=== PATIENT | female | born 1965 | race Caucasian/White ===

== ENCOUNTER 2024-10-05 01:19 | Inpatient (IN) | payer OTHER, SELFPAY ==
[2024-10-04 17:58] VITALS: BP 199/106
[2024-10-04 18:20] LABS: Hematocrit 39.8 % (37.0-47.0); Hemoglobin 13.5 g/dL (12.0-16.0); Mean Corp Hgb Conc. 33.9 g/dL (33.0-37.0); Mean Corpuscular Volume 78.7 fL (81.0-99.0); Nucleated Red Blood Cells % 0 %; Platelet Count 210 10^3/uL (130-400); Red Cell Dist. Width 15.0 % (11.5-14.5)
[2024-10-04 18:34] LABS: ALT (SGPT) 148 U/L (0-35); AST (SGOT) 63 U/L (14-36); Albumin 4.2 g/dl (3.5-5.0); Alkaline Phosphatase 228 U/L (38-126); Blood Urea Nitrogen 7 mg/dl (7-17); Calcium 9.2 mg/dl (8.4-10.2); Carbon Dioxide 24 mmol/L (22-30); Chloride 98 mmol/L (98-107); Glucose 131 mg/dl (70-99); Potassium 3.3 mmol/L (3.5-5.1); Sodium 132 mmol/L (135-145); Total Protein 7.3 g/dl (6.3-8.2); eGFR > 60.00
[2024-10-04 19:34] LABS: Lipase > 4000 U/L (23-300)
[2024-10-04] MEDS: NSS 1000 IV ×2 (21:41→23:16)
[2024-10-04] MEDS: TORADOL 15 MG IV (23:16)
[2024-10-05] VITALS (7 sets, daily range): BP systolic 148–179; BP diastolic 81–102; BMI 39.8
[2024-10-05] MEDS: ZOSYN 50 IV ×5 (00:11→23:42)
[2024-10-05] MEDS: DILAUDID 0.5 MG IV ×4 (00:12→21:10)
--- NOTE | 2024-10-05 01:17 | HPS.HSE ---
Family Physician
-
Family Physician: Donald Iqbal
Chief Complaint
-
Abd Pain
History of Present Illness
Patient is a 59y F with PMH significant for obesity, OCD and migraines who presents to ED complaining of abdominal pain and RUE pain. Patient states that her current symptoms started on Thursday. She reports epigastric pain without associated
N/V. She also has pain in the RUE - mostly medial upper arm. No known injury / trauma. She states that she was 'lying in a funny position' in an attempt to alleviate her abdominal pain. She has frequent heartburn /reflux. Patient reports
similar episodes in the past - a few times per year - but has never sought medical attention previously.
She was seen by a new PCP in August and had lab testing which was reportedly unremarkable. She was started on PPI and H2-blockade at that time for her heartburn symptoms.
Patient states that she has been working on diet and exercise and has lost about 15 pounds in the past 5 weeks.
Medical History
Past Medical History
Past Medical History: Reports Other
Additional Past Medical History:
Obesity
OCD
Migraine Headaches
Hypertension
Past Surgical History: Reports Other
Additional Past Surgical History:
RLE ORIF
Social History
Tobacco: Non-smoker
Alcohol: None
Drug: None
Family History
Family History: Not pertinent
Allergies / Home Medications
Allergies reflects when Allergies were last updated in [facility].
Home Medications with original date entered in [facility]
Allergy/Medication List:
Allergies
Allergy/AdvReac Type Severity Reaction Status Date / Time
seasonal Allergy Unknown Uncoded 10/04/24 18:04
Home Medications
paroxetine HCl 10 mg tablet 10 mg PO HS 11/30/07
metoprolol succinate 50 mg tablet,extended release 24 hr 50 mg PO HS 05/07/15
acetaminophen 325 mg tablet (Tylenol) 650 mg PO Q6HPRN PRN mild pain 10/04/24
aspirin-acetaminophen (buffered) 250 mg-250 mg tablet 1 tab PO DAILY 10/04/24
famotidine 20 mg tablet (Pepcid) 20 mg PO QPM 10/04/24
guaifenesin 400 mg tablet 400 mg PO DAILY 10/04/24
omeprazole 20 mg tablet,delayed release 20 mg PO DAILY 10/04/24
sumatriptan succinate 100 mg tablet (Imitrex) 0 mg PO .COMPLEX 10/04/24
Review of Systems
-
History Source: Patient
A 12 point ROS was completed and negative except as noted: Yes
Constitutional: Reports Fatigue; Denies Fever or Chills
EENT: Denies Sore Throat
Respiratory: Denies Cough or Trouble Breathing
Cardiac: Denies Chest Pain or Palpitations
Abdomen/GI: Reports Abdominal Pain; Denies Nausea, Vomiting, Diarrhea, Bloody Stools or Black Stools
: Denies Dysuria, Frequency or Flank Pain
Musculoskeletal: Reports Joint Pain and Muscle Pain; Denies Edema
Neurological: Denies Dizzy or Headache
Physical Exam
Vital Signs
Vital Signs
Temp Pulse Resp BP Pulse Ox
98.4 F 99 16 199/106 100
10/04/24 17:58 10/04/24 17:58 10/04/24 17:58 10/04/24 17:58 10/04/24 17:58
Physical Exam
General: Other (59y F in mild distress due to pain.)
HEENT: Moist mucous membranes, PERRLA and Other (Thick neck.)
Respiratory: Clear; No Wheezes, Rales or Rhonchi
Cardiac: S1/S2, Regular Rhythm and Murmur (II/ ELIECER)
GI: Other (Obese, pos RUQ tenderness without rebound or guarding. Pos BS.)
Musculoskeletal: No Clubbing, No Cyanosis and No Edema
Neuro: AO x 3
Laboratory Results
-
10/04/24 18:13
10/04/24 18:13
Laboratory Results
Total Bilirubin 4.5 mg/dl (0.2-1.3) H 10/04/24 18:13
AST 63 U/L (14-36) H 10/04/24 18:13
ALT 148 U/L (0-35) H 10/04/24 18:13
Alkaline Phosphatase 228 U/L (38-126) H 10/04/24 18:13
Lipase > 4000 U/L (23-300) H* 10/04/24 18:13
Impression/Plan
-
A/P: Patient is a 59y F with PMH significant for obesity, hypertension and migraines who presents to ED complaining of abdominal pain and RUE pain.
Acute Calculous Cholecystitis
Gallstone Pancreatitis
- Admit for further evaluation and treatment.
- NPO, IVFs, pain control, IV abx with Zosyn.
- Surgery consulted for eventual cholecystectomy.
- US done in the ED without evidence of ductal dilation, etc.
- Follow fever curve and monitor for improvement in symptoms.
RUE Pain
- ? referred pain secondary to GB disease - though is somewhat atypical in distribution.
- ? impingement from malpositioning over the weekend.
- Check US to rule out DVT - though this seems less likely.
- Continue supportive care / pain control.
Mild Hyponatremia and Hypokalemia
- IVF support / replacement.
- Follow for improvement.
OCD
- Stable. Continue Paxil.
Benign Hypertension
- Stable. Continue metoprolol.
Obesity due to excess calories
- Affects all aspects of care and specifically risk of gallbladder disease.
- Encourage healthy diet and increased exercise with goal of weight loss.
DVT Prophylaxis: Lovenox
Code Status: Full
[2024-10-05] MEDS: DILAUDID 1 MG IV (01:30)
[2024-10-05] MEDS: LR 1000 IV ×4 (03:38→23:42)
[2024-10-05] MEDS: TORADOL 10 MG IV ×2 (05:22→20:18)
[2024-10-05 06:11] LABS: Hematocrit 33.5 % (37.0-47.0); Hemoglobin 11.1 g/dL (12.0-16.0); Mean Corp Hgb Conc. 33.1 g/dL (33.0-37.0); Mean Corpuscular Volume 80.5 fL (81.0-99.0); Platelet Count 185 10^3/uL (130-400); Red Cell Dist. Width 15.2 % (11.5-14.5)
[2024-10-05 07:03] LABS: ALT (SGPT) 112 U/L (0-35); AST (SGOT) 44 U/L (14-36); Albumin 3.3 g/dl (3.5-5.0); Alkaline Phosphatase 158 U/L (38-126); Blood Urea Nitrogen 8 mg/dl (7-17); Calcium 8.3 mg/dl (8.4-10.2); Carbon Dioxide 24 mmol/L (22-30); Chloride 106 mmol/L (98-107); Estimated Creatinine Clearance 108 ml/min; Glucose 106 mg/dl (70-99); Magnesium 1.8 mg/dl (1.6-2.3); Potassium 3.0 mmol/L (3.5-5.1); Sodium 138 mmol/L (135-145); Total Protein 6.0 g/dl (6.3-8.2); eGFR > 60.00
[2024-10-05] MEDS: PROTONIX IV 40 MG IV (07:48)
[2024-10-05] MEDS: NSS (PRESERVATIVE FREE) 10 ML IV (07:48)
[2024-10-05] MEDS: TYLENOL 650 MG PO (07:56)
--- NOTE | 2024-10-05 09:38 | CM ---
Patient seen at bedside
IA completed
Lives with spouse in 2nd floor condo, [address]
PLOF: independent, drives
Denies DME
Has had [facility] in past, [facility] in past 2007
Denies insecurities
[facility]
PLAN: home, no needs anticipated, CM to continue to follow
[2024-10-05] MEDS: ZOFRAN 4 MG IV ×2 (09:46→17:32)
--- NOTE | 2024-10-05 10:37 | CON.GS ---
Addendum entered and electronically signed by Charlie Oneal MD 10/05/24 13:37:
MRCP reviewed, stones/sludge in distal CBD noted. Rec GI eval for consideration of ERCP
Original Note:
Consultation
-
Date/Time Consultation Performed: 10/05/24`
Requesting Provider: Josh
Performing Provider: Kimmy
Reason for Consultation: Biliary pancreatitis
Medical History
-
Chief Complaint: Abd pain
History of Present Illness:
5 days of abd pain, primary complaint at this time is RUE pain. She suspects this was caused by sleeping on it awkwardly. US neg for DVT. Heaing pad helps. Abd pain persists but is improved from onset. A/w n/v. Denies f/c. Has had this pain before
several times over the last few months.
Past Medical History
Past Medical History: Other (Obesity OCD Migraine Headaches Hypertension)
Past Surgical History: Orthopedic (2007 - RLE tibial IMN)
Social History
Tobacco: Non-Smoker
Alcohol: None
Drug: None
Family History
Family History: Reviewed & Noncontributory
Allergies / Home Medications
Allergy/AdvReac Type Severity Reaction Status Date / Time
seasonal Allergy Unknown Uncoded 10/04/24 18:04
�Medication �Instructions �Recorded �Confirmed �Type
paroxetine HCl 10 mg tablet 10 mg PO HS 11/30/07 10/04/24 History
metoprolol succinate 50 mg 50 mg PO HS 05/07/15 10/04/24 History
tablet,extended release 24 hr
acetaminophen 325 mg tablet 650 mg PO Q6HPRN PRN mild pain 10/04/24 10/04/24 History
(Tylenol)
aspirin-acetaminophen (buffered) 1 tab PO DAILY 10/04/24 10/04/24 History
250 mg-250 mg tablet
famotidine 20 mg tablet (Pepcid) 20 mg PO QPM 10/04/24 10/04/24 History
guaifenesin 400 mg tablet 400 mg PO DAILY 10/04/24 10/04/24 History
omeprazole 20 mg tablet,delayed 20 mg PO DAILY 10/04/24 10/04/24 History
release
sumatriptan succinate 100 mg 0 mg PO .COMPLEX 10/04/24 10/04/24 History
tablet (Imitrex)
Review of Systems
-
A 10 point review of systems was completed, and was negative except as per HPI.
Physical Exam
Vital Signs
Temp Pulse Resp BP Pulse Ox
97.9 F 67 16 160/89 93
10/05/24 07:00 10/05/24 07:00 10/05/24 07:00 10/05/24 07:00 10/05/24 07:00
10/04/24 10/05/24 10/06/24
06:59 06:59 06:59
Actual Weight 111.839 kg
Body Mass Index (BMI) 39.8
Lab Results
10/05/24 05:52
10/05/24 05:52
WBC 6.4 10^3/uL (4.8-10.8) 10/05/24 05:52
Hgb 11.1 g/dL (12.0-16.0) L 10/05/24 05:52
Hct 33.5 % (37.0-47.0) L 10/05/24 05:52
Plt Count 185 10^3/uL (130-400) 10/05/24 05:52
Abs Immat Gran (auto) 0.1 10^3/uL (0-0.05) H 10/04/24 18:13
Neutrophils % 83.5 % (42.2-75.2) H 10/04/24 18:13
Physical Exam
General: Well Developed, Well Nourished and No Apparent Distress
HEENT: Normocephalic and Anicteric
GI: Soft, Non Distended, Tender (mild ttp to RUQ and epigastrium) and Obese
Skin: Warm and Dry
Neuro: AO x 3
Psych: Calm
Data Reviewed
-
Ultrasound: Image Personally Visualized and interpreted, Report Reviewed by me and Discussed with Patient
Labs: Labs Reviewed by me and Discussed with Patient
Assessment / Plan
-
59F with biliary pancreatitis, possible muscle strain vs nerve impingment of RUE
AFVSS, ttp on exam to RUQ/epigastrium
No leukocytosis
LFTs elevated
Lipase >4K
US with stones and sludge, + GBWT, CBD 5mm
RUE UD neg for DVT
Plan:
MRCP
Pancreatitis mgmt per Hospitalist
NPO/IVF
PRN pain meds and antiemetics
DVT ppx
Agree with empiric abx for now
Ambulate
Discussed rationale for CCY in this setting. Plan to rule out choledocholithiasis and allow recovery from pancreatitis prior to operation.
[2024-10-05] MEDS: IMITREX 6 MG SC (11:27)
[2024-10-05] MEDS: APRESOLINE 5 MG IV (15:57)
--- NOTE | 2024-10-05 16:48 | CON.GI ---
Addendum entered and electronically signed by Isatu Prieto MD 10/05/24 17:18:
Abnormal LFTs most likely related to choledocholithiasis and also possible calculous cholecystitis will also get acute viral hepatitis serologies and continue to trend LFTs.� She also has fatty liver noted on imaging
Addendum entered and electronically signed by Isatu Prieto MD 10/05/24 17:16:
Right upper extremity pain is most likely radicular or musculoskeletal in etiology probably from a pinched nerve from possible arthritis or herniated disc in her neck.� She did sleep with her right hand under her abdomen tucked in on Thursday which
could have exacerbated her pain
Original Note:
Consultation
-
Date/Time Consultation Requested: 10/05/2024
Date/Time Consultation Performed: 10/05/2024
Requesting Provider:
Performing Provider:
Reason for Consultation: GS pancreatitis, CBD stone
Medical History
Chief Complaint / HPI
Chief Complaint: abdominal pain and RUE pain
History of Present Illness:
This is a 59-year-old female with past medical history of obesity, migraine headaches, hypertension, GERD who presented to the emergency room with symptoms of abdominal pain.� She says that she started to develop epigastric pain on Thursday which
lasted for a few hours and subsequently had improved but then started having recurrent pain again on Thursday and since Thursday she has had very little oral intake.� She also since admission has been diagnosed with gallstone pancreatitis with possible
acute cholecystitis noted on ultrasound and also abnormal LFTs.�She in fact says that her abdominal pain is actually improved.� She had an MRI with MRCP today which showed possible CBD stone with no obvious ductal dilatation though. She was started
on Zosyn. She also since admission though has been having complaints of severe right upper extremity pain and neck pain. she says that on Thursday when she was trying to sleep and she was not able to get into a comfortable position she put her right
arm under her abdomen when she slept.� She did have a right upper extremity ultrasound which was negative for DVT.� She did have mild low-grade fever at home.� She also had dry heaves but no vomiting.� She says that she saw her PCP a couple weeks
ago and was having more symptoms of acid reflux and was started on famotidine and omeprazole 20 mg daily.� She says that over the past couple of years she has had intermittent episodes of epigastric pain which she attributed to GERD and possible
ulcer. She does take Excedrin for her migraines and also Imitrex PRN.
Past Medical History
Past Medical History: Other (Obesity, OCD, Migraine Headaches, Hypertension, GERD)
Past Surgical History: Other (RLE ORIF)
Social History
Tobacco: Non-Smoker
Alcohol: None
Drug: None
Family History
Family History: Other (PGM pancreatic cancer)
Allergies / Home Medications
Allergy/AdvReac Type Severity Reaction Status Date / Time
seasonal Allergy Unknown Uncoded 10/04/24 18:04
�Medication �Instructions �Recorded
paroxetine HCl 10 mg tablet 10 mg PO HS 11/30/07
metoprolol succinate 50 mg 50 mg PO HS 05/07/15
tablet,extended release 24 hr
acetaminophen 325 mg tablet 650 mg PO Q6HPRN PRN mild pain 10/04/24
(Tylenol)
aspirin-acetaminophen (buffered) 1 tab PO DAILY 10/04/24
250 mg-250 mg tablet
famotidine 20 mg tablet (Pepcid) 20 mg PO QPM 10/04/24
guaifenesin 400 mg tablet 400 mg PO DAILY 10/04/24
omeprazole 20 mg tablet,delayed 20 mg PO DAILY 10/04/24
release
sumatriptan succinate 100 mg 0 mg PO .COMPLEX 10/04/24
tablet (Imitrex)
Review of Systems
-
All other systems: A 12 pt ROS was Negative except as stated above in HPI
Vital Signs
Temp Pulse Resp BP Pulse Ox
97.3 F 69 18 175/93 97
10/05/24 15:00 10/05/24 15:57 10/05/24 15:00 10/05/24 15:57 10/05/24 15:00
Physical Exam
Exam
General: Other (Obese female in NAD)
HEENT: Normocephalic
Respiratory: Clear
Cardiac: S1/S2
GI: Soft, Non Distended, Normal Bowel Sounds and Tender (mild epigastric tenderness)
Musculoskeletal: No Clubbing
Skin: Warm
Neuro: Awake, Alert and Oriented
Psych: Calm
Results
WBC 6.4 10^3/uL (4.8-10.8) 10/05/24 05:52
Hgb 11.1 g/dL (12.0-16.0) L 10/05/24 05:52
Hct 33.5 % (37.0-47.0) L 10/05/24 05:52
MCV 80.5 fL (81.0-99.0) L 10/05/24 05:52
Plt Count 185 10^3/uL (130-400) 10/05/24 05:52
Absolute Neuts (auto) 8.8 10^3/uL (1.4-6.5) H 10/04/24 18:13
Sodium 138 mmol/L (135-145) 10/05/24 05:52
Potassium 3.0 mmol/L (3.5-5.1) L 10/05/24 05:52
Chloride 106 mmol/L (98-107) 10/05/24 05:52
Carbon Dioxide 24 mmol/L (22-30) 10/05/24 05:52
BUN 8 mg/dl (7-17) 10/05/24 05:52
Creatinine 0.7 mg/dL (0.6-1.0) 10/05/24 05:52
Calcium 8.3 mg/dl (8.4-10.2) L 10/05/24 05:52
Total Bilirubin 3.7 mg/dl (0.2-1.3) H 10/05/24 05:52
AST 44 U/L (14-36) H 10/05/24 05:52
ALT 112 U/L (0-35) H 10/05/24 05:52
Alkaline Phosphatase 158 U/L (38-126) H 10/05/24 05:52
Lipase > 4000 U/L (23-300) H* 10/04/24 18:13
Diagnostic Image Results:
10/05/2024 MR Mrcp Without
IMPRESSION:
1. Low signal intensity in the distal common bile duct suggesting sludge and/or choledocholithiasis. No evidence for bile duct dilatation.
2. Cholelithiasis and gallbladder sludge.
3. Mild acute interstitial edematous pancreatitis.
10/05/2024 RUE US
No evidence of deep venous thrombosis of the right upper extremity
10/04/2024 US abdomen
IMPRESSION:
Sonographic findings consistent with acute cholecystitis in the proper clinical setting. No bile duct dilatation.
Mild hepatomegaly. Fatty infiltration. 1.4 cm left lobe hepatic cyst.
Limited visualization of the pancreas. Pancreatic tail is obscured as is the head. The visualized body appears homogeneous.
Prior GI Procedures:
EGD: none
Colonoscopy: none
Assessment / Plan
-
1.� Gallstone pancreatitis abdominal pain seems to be improving, her LFTs are also starting to trend down she could have passed a larger stone but on MRCP earlier today there was also still evidence of a CBD stone but no obvious ductal dilatation
noted. will schedule her for an ERCP tomorrow and subsequent timing of cholecystectomy per Dr. Oneal.� Also on ultrasound there was mention of possible acute�calculus cholecystitis she has been started on Zosyn since admission. Continue IVF with
lactated ringers and pain control, also needs incentive spirometry. NPO for now but can start clears after ERCP in AM if pain is better.
2.� She does have history of reflux and recently couple of weeks ago started taking omeprazole and famotidine as outpatient, currently receiving pantoprazole 40 mg daily. She could also have NSAID dyspepsia vs gastritis or PUD she has been on
Excedrin for her migraines as outpatient.� Try to avoid NSAIDs after DC. will also schedule endoscopy as outpatient or prior to ERCP in AM.
3.� On ultrasound she was also noted to have fatty liver and benign liver cyst.� Will need to encourage weight loss and exercise as tolerated after DC and may need to consider GLP-1 agonist for helping with weight loss will defer to PCP
4. She will also need eventual screening colonoscopy as outpatient
Data Reviewed
-
Ultrasound: Report Reviewed by me
MRI: Report Reviewed by me
-
-
Thank you for consultation and allowing me to participate in the patient's care. Please call the munitions handler supervisor GI physician during the after hours with any questions or concerns.
[2024-10-05] MEDS: LOVENOX 40 MG SC (17:22)
[2024-10-05] MEDS: COMPAZINE 5 MG IV (20:35)
[2024-10-05] MEDS: MAALOX 30 ML PO (21:04)
[2024-10-05] MEDS: TOPROL XL 50 MG PO (21:04)
[2024-10-05] MEDS: PAXIL 10 MG PO (21:10)
[2024-10-06] VITALS (13 sets, daily range): BP systolic 150–193; BP diastolic 81–103; BMI 40.1
[2024-10-06] MEDS: APRESOLINE 5 MG IV ×2 (00:59→07:42)
[2024-10-06] MEDS: IMITREX 100 MG PO (01:35)
[2024-10-06] MEDS: ZOSYN 50 IV ×4 (06:01→23:19)
[2024-10-06] MEDS: LR 1000 IV ×3 (06:02→23:19)
[2024-10-06] MEDS: ZOFRAN 4 MG IV ×2 (06:12→20:35)
[2024-10-06] MEDS: DILAUDID 0.5 MG IV ×3 (06:13→23:50)
[2024-10-06] MEDS: NSS (PRESERVATIVE FREE) 10 ML IV (07:35)
[2024-10-06] MEDS: PROTONIX IV 40 MG IV (07:35)
[2024-10-06 08:08] LABS: Hematocrit 34.7 % (37.0-47.0); Hemoglobin 11.6 g/dL (12.0-16.0); Mean Corp Hgb Conc. 33.4 g/dL (33.0-37.0); Mean Corpuscular Volume 80.0 fL (81.0-99.0); Platelet Count 188 10^3/uL (130-400); Red Cell Dist. Width 15.2 % (11.5-14.5)
[2024-10-06 08:28] LABS: ALT (SGPT) 100 U/L (0-35); AST (SGOT) 47 U/L (14-36); Albumin 3.6 g/dl (3.5-5.0); Alkaline Phosphatase 215 U/L (38-126); Blood Urea Nitrogen 6 mg/dl (7-17); Calcium 8.5 mg/dl (8.4-10.2); Carbon Dioxide 21 mmol/L (22-30); Chloride 104 mmol/L (98-107); Estimated Creatinine Clearance > 125 ml/min; Glucose 89 mg/dl (70-99); Potassium 3.2 mmol/L (3.5-5.1); Sodium 138 mmol/L (135-145); Total Protein 6.4 g/dl (6.3-8.2); eGFR > 60.00
--- NOTE | 2024-10-06 08:34 | W.PN.GS2 ---
Today's Communication / Plan
-
continue the antibiotics
depends on ERCP impression scheduling for cholecystectomy.
Assessment / Plan
-
59 yr F with p/h/o migraine, obesity, hypertension, GERD presented with abdominal pain
# Abdominal pain secondary to Gallstone pancreatitis:
--Currently pt abdominal pain is improving.
-LFT:
Lipase= >4000 (h)
AST 63-->44-->47 (H)
QQW=615-->112-->100 (H)
Total bilirubin- 3.5
-USG Abdomen on 10/04/24:
acute cholecystitis in the proper clinical setting. No bile duct dilatation. Mild hepatomegaly. Fatty infiltration. 1.4 cm left lobe hepatic cyst.
-MRCP on 10/05/24:
1.Stones and sludge in the gallbladder lumen. No intrahepatic or extrahepatic bile duct dilatation. The common bile duct measures 6 mm in diameter. Low signal intensity within the distal 10 mm segment of the common bile duct suggesting sludge and/or
choledocholithiasis.
1.4 cm cyst in the lateral left hepatic lobe. 6 mm cyst in the right hepatic lobe. The spleen, bilateral adrenal glands, and kidneys are unremarkable. No hydronephrosis.
2. Cholelithiasis and gallbladder sludge.
3. Mild acute interstitial edematous pancreatitis.
-Currently the patient on NPO
-Continue the IV fluids, lactate ringer.
-Day 3 of Zosyn
- Scheduled for ERCP today depending of the impression will decide to do cholecystectomy.
Subjective Data
-
Date of Service: October 06, 2024
Overnight patient had abdominal pain, which is improved comparing from yesterday, pain is associated with nausea of 2 episodes overnight, and patient is currently on NPO for her ERCP procedure for today.
She passed flatus, bowel movements yesterday.
Abdominal pain not associated with diarrhea, constipation.
Objective Data
-
Intake and Output
10/05/24 10/06/24 10/07/24
06:59 06:59 06:59
Intake Total 1809
Balance 1809
Intake:
Oral fluids 60 / 60
IV fluids (Total) 1649
IV piggybacks 100 / 100
Other:
Number of approximated MODERATE 3
amounts of urine
Vital Signs
Temp Pulse Resp BP Pulse Ox
98.5 F 76 18 190/97 92
10/05/24 23:26 10/06/24 07:42 10/05/24 23:26 10/06/24 07:42 10/05/24 23:26
Lab Results
10/06/24 06:22
10/06/24 06:22
Calcium 8.5 mg/dl (8.4-10.2) 10/06/24 06:22
Magnesium 1.8 mg/dl (1.6-2.3) 10/05/24 05:52
Total Bilirubin 3.5 mg/dl (0.2-1.3) H 10/06/24 06:22
Direct Bilirubin 3.1 mg/dl (0.0-0.4) H 10/05/24 05:52
AST 47 U/L (14-36) H 10/06/24 06:22
ALT 100 U/L (0-35) H 10/06/24 06:22
Alkaline Phosphatase 215 U/L (38-126) H 10/06/24 06:22
Total Protein 6.4 g/dl (6.3-8.2) 10/06/24 06:22
Albumin 3.6 g/dl (3.5-5.0) 10/06/24 06:22
Physical Exam
-
General: Other (Obese female in NAD)
HEENT: Normocephalic
Respiratory: Clear
Cardiac: S1/S2
GI: Soft, Non Distended, Normal Bowel Sounds and Tenderness present at epigastric tenderness.
murphys sign negative.
Musculoskeletal: No Clubbing
Skin: Warm
Neuro: Awake, Alert and Oriented
Psych: Calm
Patient has a dillard catheter: No
Patient has a central line: No
[2024-10-06] MEDS: TORADOL 10 MG IV ×2 (09:08→20:35)
[2024-10-06] MEDS: IMITREX 6 MG SC (10:00)
[2024-10-06 10:38] LABS: Hepatitis B Surface Antigen Negative (Negative)
[2024-10-06 10:57] LABS: Hepatitis A Antibody, Total Negative (Negative); Hepatitis C Antibody Negative (Negative)
--- NOTE | 2024-10-06 11:54 | CM ---
CM following for discharge planning needs. Pt for ERCP today and possible cholecystectomy.
Will check in with patient after procedure to discuss resources for discharge to home.
--- NOTE | 2024-10-06 12:41 | W.PN.HOSP.TC ---
Today's Communication/Plan
-
Continue with IV Zosyn
Continue with IV fluids
Continue as needed Imitrex
Continue as needed hydralazine
Assessment / Plan
Assessment / Plan
A/P: Patient is a 59y F with PMH significant for obesity, hypertension and migraines who presents to ED complaining of abdominal pain and RUE pain.
Acute Calculous Cholecystitis
Gallstone Pancreatitis
Possible choledocholithiasis
- Continue to keep NPO
- Continue with IV fluids
- Continue with empirical Zosyn
- For ERCP today
- Ultimate cholecystectomy-General Surgery following
RUE Pain
- ? referred pain secondary to GB disease - though is somewhat atypical in distribution.
- ? impingement from malpositioning over the weekend.
- US upper arm shows no DVT
- Continue supportive care / pain control.
Hypokalemia
- IVF support / replacement.
- Follow for improvement.
Migraine headaches-continue with Imitrex as needed
OCD
- Stable. Continue Paxil.
Benign Hypertension
- Not under goal. Continue metoprolol. Add as needed hydralazine for now
Obesity due to excess calories
- Affects all aspects of care and specifically risk of gallbladder disease.
- Encourage healthy diet and increased exercise with goal of weight loss.
DVT Prophylaxis: Lovenox
Code Status: Full
Anticipated Discharge: > 48 hours
Subjective/Interval History
-
Date of Service: October 06, 2024
Improved abdominal pain. Still intermittent nausea ongoing.
Denies fever or chills. No shortness of breath.
Chronic migraine headaches for many years. Imitrex helps. This morning had a headache and received Imitrex seems to be improving. Yesterday's migraine headache better with Imitrex.
Right inner arm pain. She thinks she might of slept funny. No other trauma. Seems to be aggravated with the movement. No prior shoulder joint issues.
Objective Data
-
Labs:
Laboratory Results
10/06/24
06:22
WBC 6.6
Hgb 11.6 L
Hct 34.7 L
Plt Count 188
Sodium 138
Potassium 3.2 L
Chloride 104
Carbon Dioxide 21 L
BUN 6 L
Creatinine 0.6
Glucose 89
Calcium 8.5
Total Bilirubin 3.5 H
AST 47 H
ALT 100 H
Alkaline Phosphatase 215 H
Vital Signs:
Vital Signs
Temp Pulse Resp BP Pulse Ox
98.4 F 76 20 187/95 92
10/06/24 07:35 10/06/24 11:07 10/06/24 07:35 10/06/24 11:07 10/06/24 07:35
I&O
10/05/24 10/06/24 10/07/24
06:59 06:59 06:59
Intake Total 1809
Balance 1809
Physical Exam
-
General: Comfortable
HEENT: Moist Mucous Membranes
Respiratory: Clear to Auscultation and Non Labored Respirations; Negative Accessory Resp Muscle Use
Cardiac: Regular Rhythm and S1/S2
GI: Soft, Nondistended, Normal Bowel Sounds and Tender (Epigastric and right upper quadrant area)
Musculoskeletal: Other (Some palpable tenderness in the medial part of the right arm and also some pain with movement of the right shoulder in the medial part of the arm. No tenderness over the shoulder itself. Suspect musculoskeletal pain.)
Neuro: AO x 3
Data Reviewed
-
Labs: Labs Reviewed by me
[2024-10-06] MEDS: KCL 270 MEQ IV (13:11)
--- NOTE | 2024-10-06 15:26 | W.PN.SURGUPD ---
Surgical Update
Surgical Update
Patient was not personally seen by myself today.
At ERCP procedure when attempted to evaluate this afternoon.
Pending ERCP findings we will tentatively add patient onto the OR schedule for 10/07/2024 for laparoscopic cholecystectomy and review indications for procedure with patient tomorrow a.m.
Okay for clear liquids after ERCP but recommend n.p.o. after midnight if patient would like to proceed with cholecystectomy at this index hospitalization
Will follow
[2024-10-06] MEDS: APRESOLINE 10 MG IV ×2 (17:36→23:49)
[2024-10-06] MEDS: LOVENOX 40 MG SC (17:37)
--- NOTE | 2024-10-06 17:45 | PTCARENOTE ---
pt back from GI lab s/p ERCP. report given by GLENDY Murphy. pt on clears tonight. NPO after MN for poss Lap Shital 10/07. pt is drowsy, BP elevated. PRN Hydralazine given at this time. pt on 2L o2 at this time. call interiano within the reach. plan of care
ongoing.
[2024-10-06] MEDS: PAXIL 10 MG PO (20:46)
[2024-10-06] MEDS: TOPROL XL 50 MG PO (20:46)
[2024-10-07] VITALS (18 sets, daily range): BP systolic 94–185; BP diastolic 37–95; BMI 40.7
[2024-10-07] MEDS: TORADOL 10 MG IV ×3 (03:29→23:59)
[2024-10-07] MEDS: APRESOLINE 10 MG IV ×2 (04:03→08:33)
[2024-10-07] MEDS: COMPAZINE 5 MG IV (04:04)
--- NOTE | 2024-10-07 05:08 | PTCARENOTE ---
CHG wipes performed, new gown; Bed sheets changed
[2024-10-07] MEDS: ZOSYN 50 IV ×4 (05:23→23:00)
[2024-10-07] MEDS: ZOFRAN 4 MG IV (06:22)
[2024-10-07] MEDS: DILAUDID 0.5 MG IV ×3 (06:23→20:14)
[2024-10-07 07:18] LABS: Hematocrit 35.7 % (37.0-47.0); Hemoglobin 12.0 g/dL (12.0-16.0); Mean Corp Hgb Conc. 33.6 g/dL (33.0-37.0); Mean Corpuscular Volume 80.0 fL (81.0-99.0); Platelet Count 247 10^3/uL (130-400); Red Cell Dist. Width 15.9 % (11.5-14.5)
[2024-10-07 07:55] LABS: ALT (SGPT) 85 U/L (0-35); AST (SGOT) 37 U/L (14-36); Albumin 3.5 g/dl (3.5-5.0); Alkaline Phosphatase 193 U/L (38-126); Blood Urea Nitrogen 10 mg/dl (7-17); Calcium 8.6 mg/dl (8.4-10.2); Carbon Dioxide 23 mmol/L (22-30); Chloride 104 mmol/L (98-107); Estimated Creatinine Clearance > 125 ml/min; Glucose 132 mg/dl (70-99); Lipase 497 U/L (23-300); Potassium 3.4 mmol/L (3.5-5.1); Sodium 137 mmol/L (135-145); Total Protein 6.4 g/dl (6.3-8.2); eGFR > 60.00
[2024-10-07] MEDS: LR 1000 IV (08:22)
[2024-10-07] MEDS: NSS (PRESERVATIVE FREE) 10 ML IV (08:23)
[2024-10-07] MEDS: PROTONIX IV 40 MG IV (08:23)
--- NOTE | 2024-10-07 08:35 | W.PN.GS2 ---
Addendum entered and electronically signed by Aditya Sanchez MD 10/07/24 11:18:
I was physically present and personally performed the [place] portions of the surgical evaluation and/or procedure with the resident. I discussed the findings, reviewed the resident�s note, and confirmed the medical decision-making. I provided direct
supervision as required and agree with the assessment and plan as documented with the following additions/corrections:
Patient reports epigastric abdominal discomfort and some right shoulder as well as right triceps area pain
Previous duplex imaging was negative for right upper extremity DVT
Symptoms improving from time of admission and not worse after ERCP yesterday evening.
AFVSS at
NAD AAO x 3
ABD: Soft, nondistended, minimal tenderness palpation epigastrium and right upper quadrant. No rebound rigidity or guarding.
Assessment/plan: 59-year-old female with presumed gallstone mediated acute pancreatitis
Clinically improving.
Reviewed with patient indications for cholecystectomy and we discussed options regarding timing. Patient in agreement to proceed with cholecystectomy today. Laparoscopic cholecystectomy with possible cholangiogram was reviewed in detail with the
patient including operative technique, alternative treatment options, benefits and potential risk such as but not limited to bleeding, infectious and wound related complications, iatrogenic injury to surrounding viscera, bile duct injury, bile leak
and postcholecystectomy changes in bowel habits. Any of the patient's concerns or questions were confirmed to be fully addressed. Informed consent was obtained.
Patient on OR schedule today for lap catarina
Original Note:
Today's Communication / Plan
-
planning for laparoscopic cholecystectomy today.
Assessment / Plan
-
59 yr F with p/h/o migraine, obesity, hypertension, GERD presented with abdominal pain
# Abdominal pain secondary to Gallstone pancreatitis:
--Currently pt abdominal pain is improving.
-LFT:
Lipase= >4000 (h)
AST 63-->44-->47 (H)-->37
WDE=780-->112-->100 (H)-->85
ALP= 193
Total bilirubin- 3.5
-USG Abdomen on 10/04/24:
acute cholecystitis in the proper clinical setting. No bile duct dilatation. Mild hepatomegaly. Fatty infiltration. 1.4 cm left lobe hepatic cyst.
-MRCP on 10/05/24:
1.Stones and sludge in the gallbladder lumen. No intrahepatic or extrahepatic bile duct dilatation. The common bile duct measures 6 mm in diameter. Low signal intensity within the distal 10 mm segment of the common bile duct suggesting sludge and/or
choledocholithiasis.
1.4 cm cyst in the lateral left hepatic lobe. 6 mm cyst in the right hepatic lobe. The spleen, bilateral adrenal glands, and kidneys are unremarkable. No hydronephrosis.
2. Cholelithiasis and gallbladder sludge.
3. Mild acute interstitial edematous pancreatitis.
ERCP on 10/06 IMPRESSION:
- Acquired duodenal stenosis-Dilation performed in the second portion of the duodenum and biopsies were taken with a cold forceps for histology in the stenosis in the second portion of the duodenum.
- The major papilla appeared normal.
- A biliary sphincterotomy was performed.
- The biliary tree was swept and scant amount of sludge was found, no stone was extracted.
- One pancreatic stent was placed into the ventral pancreatic duct.
Currently patient is on NPO.
Subjective Data
-
Date of Service: October 07, 2024
Overnight pt had continuous nausea sensation which was relived by Ondansetron 4 mg IV BID. She has abdominal discomfort, but comparatively feeling better after the ERCP procedure.
Objective Data
-
Intake and Output
10/06/24 10/07/24 10/08/24
06:59 06:59 06:59
Intake Total 1810 / 1810 3020 / 3020
Balance 1810 / 1810 3020 / 3020
Intake:
Oral fluids 60 / 60
IV fluids (Total) 1650 / 1650 2550 / 2550
normasol 100 / 100
IV piggybacks 100 / 100 470 / 470
Other:
Number of approximated MODERATE 3 1
amounts of urine
Vital Signs
Temp Pulse Resp BP Pulse Ox
97.5 F 70 18 160/78 95
10/07/24 07:55 10/07/24 07:55 10/07/24 07:55 10/07/24 07:55 10/07/24 07:55
Lab Results
10/07/24 06:02
10/07/24 06:02
Calcium 8.6 mg/dl (8.4-10.2) 10/07/24 06:02
Magnesium 1.8 mg/dl (1.6-2.3) 10/05/24 05:52
Total Bilirubin 2.2 mg/dl (0.2-1.3) H 10/07/24 06:02
Direct Bilirubin 3.1 mg/dl (0.0-0.4) H 10/05/24 05:52
AST 37 U/L (14-36) H 10/07/24 06:02
ALT 85 U/L (0-35) H 10/07/24 06:02
Alkaline Phosphatase 193 U/L (38-126) H 10/07/24 06:02
Total Protein 6.4 g/dl (6.3-8.2) 10/07/24 06:02
Albumin 3.5 g/dl (3.5-5.0) 10/07/24 06:02
Physical Exam
-
General: Other (Obese female in NAD)
HEENT: Normocephalic
Respiratory: Clear
Cardiac: S1/S2
GI: Soft, Non Distended, Normal Bowel Sounds and non tender.
Musculoskeletal: No Clubbing
Skin: Warm
Neuro: Awake, Alert and Oriented
Psych: Calm
Patient has a dillard catheter: No
Patient has a central line: No
--- NOTE | 2024-10-07 10:56 | W.PN.GI.CBS2 ---
Addendum entered and electronically signed by Beth Hernández MD 10/07/24 14:32:
I saw and examined the patient.
The PAYROLL REPRESENTATIVE or PA's note was reviewed and I agree with the note.
Comment: 59 yo F with gallstone pancreatitis s/p ERCP as outlined below.
Abd pain improving c/o arm pain and migraines.
Bili downtrending.
Recommendations:
- Xray 2 weeks ensure migration of plastic stent - Kajal gave pt script
- Plan CCY today
- Adv diet per surgery after CCY
GI will sign off please call with ?s
Original Note:
Today's Communication / Plan
-
as per plan
Assessment / Plan
-
59-year-old female with past medical history of obesity, migraine headaches, hypertension, GERD who presented to the emergency room with symptoms of abdominal pain. Found to have gallstone pancreatitis. Concern for bile duct stones now s/p ERCP.
ERCP 10/06/24:
- Acquired duodenal stenosis.
- Dilation performed in the second portion of the duodenum with a
12-13.5-15 mm balloon (to a maximum balloon size of 12 mm), a
12-13.5-15 mm balloon (to a maximum balloon size of 13.5 mm) and a
12-13.5-15 mm balloon (to a maximum balloon size of 15 mm) dilator.
- Biopsies were taken with a cold forceps for histology in the
stenosis in the second portion of the duodenum.
- The major papilla appeared normal.
- A biliary sphincterotomy was performed.
- The biliary tree was swept and scant amount of sludge was found,
no stone was extracted.
- One pancreatic stent was placed into the ventral pancreatic duct.
Impression/Plan:
1.� Gallstone pancreatitis
--improvement of abdominal pain
--s/p ERCP with duodenal stenosis, balloon dilatation 12-15 mm, duodenal stenosis bx, sphincterotomy/12mm balloon sweep with sludge but no stone, 4Fr by 3cm PD stent placed
--improvement of pain
--improvement of LFTs and Lipase
--having cholecystectomy today, diet after CCY as per surgery. Patient tolerated clears last night.
--XR Abd slip given to patient to have performed in 2 weeks, will be sent to Dr. De La Cruz to confirm PD stent migration.
--Path results pending, Dr. De La Cruz to follow up on.
2. GERD
-Continue Pantoprazole 40 mg daily
3. Fatty liver, left lobe liver cyst 1.5 cm.
--Seen on US. Recommend weight loss.
--Follow up as outpatient/PCP.
4. Screening colonoscopy recommended.
Subjective
Subjective
Date of Service: October 07, 2024
Patient feeling improved from GI perspective. Less abdominal discomfort. Rates it as '1-2' today, was a '3' yesterday. LFTs and Lipase improving. Patient is having cholecystectomy today. Her complaint is a migraine today that she gets frequently.
Discussed with the patient ERCP and pancreatic stent that was placed. XR slip given to patient to have in 2 weeks. Patient understands.
Objective
Data Reviewed
Laboratory Data:
Laboratory Results
10/07/24 06:02
10/07/24 06:02
Laboratory Results
Magnesium 1.8 mg/dl (1.6-2.3) 10/05/24 05:52
Total Bilirubin 2.2 mg/dl (0.2-1.3) H 10/07/24 06:02
AST 37 U/L (14-36) H 10/07/24 06:02
ALT 85 U/L (0-35) H 10/07/24 06:02
Alkaline Phosphatase 193 U/L (38-126) H 10/07/24 06:02
Lipase 497 U/L (23-300) H 10/07/24 06:02
Vital Signs and I&O:
Vital Signs
Temp Pulse Resp BP Pulse Ox
97.5 F 69 18 158/77 95
10/07/24 07:55 10/07/24 08:33 10/07/24 07:55 10/07/24 09:23 10/07/24 09:30
I&O
10/06/24 10/07/24 10/08/24
06:59 06:59 06:59
Intake Total 1810 / 1810 3020 / 3020
Balance 1810 / 1810 3020 / 3020
Physical Exam
Physical Exam
HEENT: Anicteric
Cardiology: Normal Sinus Rhythm
Pulmonary: Clear (anterior)
GI: Soft, Non Distended, Non Tender and Normal Bowel Sounds
Neuro: Non Focal
--- NOTE | 2024-10-07 12:39 | W.PN.HOSP.TC ---
Today's Communication/Plan
-
Radiology studies
Pain control
Lap catarina
Assessment / Plan
Assessment / Plan
59-year-old presented to the hospital with abdominal pain
Ultrasound of the abdomen-acute cholecystitis, mild hepatomegaly, fatty infiltration, 1.4 cm left lobe hepatic cyst
MRCP 10/05/2024-low signal intensity in the distal CBD suggesting sludge/choledocholithiasis. Cholelithiasis and gallbladder. Mild acute interstitial edematous pancreatitis
ERCP-unremarkable retrograde cholangiogram with no definitive filling defects appreciated. Subsequent biliary sphincterotomy was performed
has right arm pain-
No pain or redness or tenderness with tough on right arm
CVS: S1-S2 normal
Chest: CTA B/L
Abdomen: Soft, mild RUQ tenderness, Bowel sounds present
Extremities: No edema, normal pulses
# Acute calculus cholecystitis
Possible choledocholithiasis
Gallstone pancreatitis
Hepatitis panel negative
N.p.o. with IV fluids
Continue Zosyn
Pain control with Dilaudid and ketorolac
lipase better
ERCP-done on 10/06/2024 without any filling defects
Surgery consulted for cholecystectomy possibly OR today on 10/07/2024 for laparoscopic cholecystectomy
# Right upper extremity pain
Ultrasound with no DVT
Pain in scapula
Check CT chest, Xray humerus and Xray C spine.
Lidoderm patch for pain
# Hypertension currently on metoprolol and as needed hydralazine. Pain may be a contributing factor for elevated blood pressure
# Hypokalemia-replace
# Prolonged QTc-better
# Hepatic steatosis per ultrasound
# Migraine-on Imitrex as needed
# Anxiety-on Paxil
# GERD-continue PPI
# Obesity with a BMI of 40
# DVT prophylax-Lovenox
# Full code
D/W RN
D/W Spouse at bed side
Part of this note was created using voice recognition system. Occasional wrong word or��sound alike� substitutions may have inadvertently occurred due to the inherent limitations of voice recognition software. If noted kindly bring it to my
attention for correction.
Anticipated Discharge: Within 24 hours
Subjective/Interval History
-
Date of Service: October 07, 2024
Objective Data
-
Labs:
Laboratory Results
10/07/24
06:02
WBC 9.0
Hgb 12.0
Hct 35.7 L
Plt Count 247 D
Sodium 137
Potassium 3.4 L
Chloride 104
Carbon Dioxide 23
BUN 10
Creatinine 0.6
Glucose 132 H
Calcium 8.6
Total Bilirubin 2.2 H
AST 37 H
ALT 85 H
Alkaline Phosphatase 193 H
Vital Signs:
Vital Signs
Temp Pulse Resp BP Pulse Ox
97.5 F 68 16 156/76 97
10/07/24 11:28 10/07/24 11:28 10/07/24 11:28 10/07/24 11:28 10/07/24 11:28
I&O
10/06/24 10/07/24 10/08/24
06:59 06:59 06:59
Intake Total 1809 / 1810 3020 / 3020
Balance 1810 / 1810 3020 / 3020
[2024-10-07] MEDS: LIDOCAINE 4% PATCH 2 PATCH TOPICAL (12:44)
[2024-10-07] MEDS: KCL 260 MEQ IV (12:53)
--- NOTE | 2024-10-07 14:40 | W.SUR.PREOP ---
Pre-Operative Surgical Note
-
I have examined this patient prior to the performance of the scheduled procedure.
The patient's condition is unchanged from the time of the current History and
Physical and the patient is able to undergo the scheduled procedure.
--- NOTE | 2024-10-07 15:26 | CM ---
Home when stable, no needs.
Plan; Home when stable, no needs.
--- NOTE | 2024-10-07 16:43 | W.IMMPOSTOP ---
Addendum entered and electronically signed by Aditya Sanchez MD 10/07/24 16:57:
#[id number]
Original Note:
Surgical Immed Post Op Note
-
Primary Surgeon: Aditya Sanchez MD
Assisting Surgeon: Juan Pablo ZHAO
Pre-op Diagnosis: Biliary acute pancreatitis
Post-op Diagnosis: Biliary acute pancreatitis
Chronic calculus cholecystitis
Procedure Performed: Laparoscopic cholecystectomy
Anesthesia Type: GETA +0.25% Marcaine with epinephrine
Specimen / Cultures: Gallbladder
Estimated Blood Loss: 60 mL
Complications: None immediate
Operative Findings: Distended gallbladder, chronically inflamed. Cystic duct identified and thickened due to surrounding inflammation. Controlled with Endoloop. Main cystic artery identified and controlled with clips as well as posterior branch.
Gallbladder removed off liver bed intact. Was a bit intrahepatic. Gallbladder extracted at 12 mm supraumbilical trocar site.
Updated patient's spouse postoperatively via phone call
[2024-10-07] MEDS: DILAUDID 0.25 MG IV (17:32)
[2024-10-07] MEDS: LOVENOX 40 MG SC (18:23)
--- NOTE | 2024-10-07 18:57 | PTCARENOTE ---
Received pt from PACU. Pt pox 97% on 2L. Reports 10/10 abdominal pain. States that 'it feels like when she came in'. Pt attempting clear liquid diet. No needs at this time.
[2024-10-07] MEDS: REMOVE LIDOCAINE PATCH 2 PATCH REMOVE (19:56)
[2024-10-07] MEDS: TOPROL XL 50 MG PO (21:58)
[2024-10-07] MEDS: PAXIL 10 MG PO (21:58)
[2024-10-08] VITALS (8 sets, daily range): BP systolic 143–182; BP diastolic 71–98; BMI 41.7
[2024-10-08] MEDS: DILAUDID 0.5 MG IV ×4 (03:50→20:11)
[2024-10-08] MEDS: LR IV (04:58)
[2024-10-08] MEDS: ZOSYN 50 IV ×2 (05:00→11:23)
[2024-10-08] MEDS: NSS (PRESERVATIVE FREE) 10 ML IV (07:41)
[2024-10-08] MEDS: TORADOL 10 MG IV ×2 (07:42→14:01)
[2024-10-08] MEDS: LIDOCAINE 4% PATCH 2 PATCH TOPICAL (07:42)
[2024-10-08] MEDS: PROTONIX IV 40 MG IV (07:42)
[2024-10-08 09:45] LABS: Hematocrit 34.0 % (37.0-47.0); Hemoglobin 11.3 g/dL (12.0-16.0); Mean Corp Hgb Conc. 33.2 g/dL (33.0-37.0); Mean Corpuscular Volume 80.4 fL (81.0-99.0); Platelet Count 157 10^3/uL (130-400); Red Cell Dist. Width 16.1 % (11.5-14.5)
[2024-10-08 09:49] LABS: ALT (SGPT) 94 U/L (0-35); AST (SGOT) 58 U/L (14-36); Albumin 3.4 g/dl (3.5-5.0); Alkaline Phosphatase 165 U/L (38-126); Blood Urea Nitrogen 9 mg/dl (7-17); Calcium 8.2 mg/dl (8.4-10.2); Carbon Dioxide 25 mmol/L (22-30); Chloride 106 mmol/L (98-107); Estimated Creatinine Clearance > 125 ml/min; Glucose 95 mg/dl (70-99); Magnesium 2.2 mg/dl (1.6-2.3); Potassium 3.5 mmol/L (3.5-5.1); Sodium 138 mmol/L (135-145); Total Protein 6.2 g/dl (6.3-8.2); eGFR > 60.00
[2024-10-08] MEDS: LR 1000 IV ×3 (10:03→22:05)
--- NOTE | 2024-10-08 11:16 | W.PN.GS2 ---
Addendum entered and electronically signed by Aditya Sanchez MD 10/08/24 11:49:
Patient seen and examined with surgical WOOL BUYER. Agree with documented progress note
Patient appears much more comfortable today than she did preoperatively.
She still has some mild nausea and early satiety with dietary intake as expected.
Preoperative abdominal pains overall improving.
AFVSS
NAD AAO x 3
Abdomen soft and very mildly tender on palpation. Incision sites with glue dressings.
A/P: POD #1 status post lap catarina and PPD #2 status post ERCP
Doing well with expected initial postoperative recovery
Advised patient that she may continue to advance her diet as tolerated. Expecting some degree of bloating distention early satiety and fullness given recovery from surgery, cholecystitis and pancreatitis but with smaller portion sizes and low-fat
foods would expect a dietary tolerance.
Antibiotics will be discontinued today
Analgesics as needed/antiemetics as needed
Lovenox for VTE prophylaxis
From surgical standpoint patient safe for discharge when tolerates p.o. challenge
Original Note:
Today's Communication / Plan
-
Advance diet as tolerated
Assessment / Plan
-
59-year-old female with presumed gallstone mediated acute pancreatitis with choledocholithiasis on MRCP
PPD #2 ERCP with biliary sphincterotomy, removal of sludge and placement of pancreatic stent into the ventral pancreatic duct
POD #1 Laparoscopic cholecystectomy with chronic cholecystitis noted intraop
AFVSS
Progressing well although still with some discomfort with PO intake
LFT's continue to trend down
No leukocytosis
Plan:
Continue clears, ok to advance to low fat diet as tolerated
ABX through the first 24hours post op then d/c
Analgesics as needed
VTE ppx with lovenox sq
Medical management as per primary team
Subjective Data
-
Date of Service: October 08, 2024
Pt seen and examined at bedside with Dr. Sanchez. Feeling a bit better than preop. Fatigued. Denies n/v. A little epigastric discomfort after eating. Some incisional discomfort. Dry mouth.
Objective Data
-
Intake and Output
10/07/24 10/08/24 10/09/24
06:59 06:59 06:59
Intake Total 3020 / 3020 1300 / 1300
Output Total 450 / 450
Balance 3020 / 3020 850 / 850
Intake:
IV fluids (Total) 2550 / 2550 1200 / 1200
normasol 100 / 100 100 / 100
IV piggybacks 470 / 470 100 / 100
Output:
Urine, Glez 100 / 100
Urine, Voided 350 / 350
Other:
Number of approximated MODERATE 1 1
amounts of urine
Vital Signs
Temp Pulse Resp BP Pulse Ox
97.5 F 58 16 160/98 100
10/08/24 07:00 10/08/24 07:00 10/08/24 07:00 10/08/24 07:00 10/08/24 10:34
Lab Results
10/08/24 09:01
10/08/24 09:01
Calcium 8.2 mg/dl (8.4-10.2) L 10/08/24 09:01
Magnesium 2.2 mg/dl (1.6-2.3) 10/08/24 09:01
Total Bilirubin 1.4 mg/dl (0.2-1.3) H 10/08/24 09:01
Direct Bilirubin 1.2 mg/dl (0.0-0.4) H 10/08/24 09:01
AST 58 U/L (14-36) H 10/08/24 09:01
ALT 94 U/L (0-35) H 10/08/24 09:01
Alkaline Phosphatase 165 U/L (38-126) H 10/08/24 09:01
Total Protein 6.2 g/dl (6.3-8.2) L 10/08/24 09:01
Albumin 3.4 g/dl (3.5-5.0) L 10/08/24 09:01
Physical Exam
-
NAD
ABD soft, tender at incisions (expected), non-distended
Incisions well approximated, intact glue, no erythema
[2024-10-08] MEDS: APRESOLINE 10 MG IV ×2 (12:38→20:12)
--- NOTE | 2024-10-08 13:45 | W.PN.HOSP.TC ---
Today's Communication/Plan
-
clears
OOB
pain control
Assessment / Plan
Assessment / Plan
59-year-old presented to the hospital with abdominal pain
Ultrasound of the abdomen-acute cholecystitis, mild hepatomegaly, fatty infiltration, 1.4 cm left lobe hepatic cyst
MRCP 10/05/2024-low signal intensity in the distal CBD suggesting sludge/choledocholithiasis. Cholelithiasis and gallbladder. Mild acute interstitial edematous pancreatitis
ERCP-unremarkable retrograde cholangiogram with no definitive filling defects appreciated. Subsequent biliary sphincterotomy was performed
has right arm pain- and right scapular pain
No pain or redness or tenderness with tough on right arm
CVS: S1-S2 normal
Chest: CTA B/L
Abdomen: Soft, mild RUQ tenderness, Bowel sounds present
Extremities: No edema, normal pulses
# Acute calculus cholecystitis
Possible choledocholithiasis on MRI
Gallstone pancreatitis
Hepatitis panel negative
Pain control with Dilaudid and ketorolac
lipase better
ERCP-done on 10/06/2024 without any filling defects
S/P Lap cholecystectomy on 10/07/2024
Did not tolerate full liquid diet therefore changed to clear liquids
# Right upper extremity pain
Ultrasound with no DVT
Pain in scapula
Check CT chest
X-ray of the humerus, negative
X-ray of the [id number] degenerative changes pronounced in the lower cervical spine
lidocaine patch for pain
# Hypertension currently on metoprolol and as needed hydralazine. Pain may be a contributing factor for elevated blood pressure
# Hypokalemia-replace
# Prolonged QTc-better
# Hepatic steatosis per ultrasound
# Migraine-on Imitrex as needed
# Anxiety-on Paxil
# GERD-continue PPI
# Obesity with a BMI of 40
# DVT prophylax-Lovenox
# Full code
D/W RN
Part of this note was created using voice recognition system. Occasional wrong word or��sound alike� substitutions may have inadvertently occurred due to the inherent limitations of voice recognition software. If noted kindly bring it to my
attention for correction.
Anticipated Discharge: Within 24 hours
Subjective/Interval History
-
Date of Service: October 08, 2024
Objective Data
-
Labs:
Laboratory Results
10/08/24
09:01
WBC 7.3
Hgb 11.3 L
Hct 34.0 L
Plt Count 157 D
Sodium 138
Potassium 3.5
Chloride 106
Carbon Dioxide 25
BUN 9
Creatinine 0.6
Glucose 95
Calcium 8.2 L
Total Bilirubin 1.4 H
AST 58 H
ALT 94 H
Alkaline Phosphatase 165 H
Vital Signs:
Vital Signs
Temp Pulse Resp BP Pulse Ox
97.7 F 60 16 167/88 95
10/08/24 11:00 10/08/24 12:11 10/08/24 11:00 10/08/24 12:38 10/08/24 11:00
I&O
10/07/24 10/08/24 10/09/24
06:59 06:59 06:59
Intake Total 3020 / 3020 1300 / 1300
Output Total 450 / 450
Balance 3020 / 3020 850 / 850
[2024-10-08] MEDS: NORVASC 5 MG PO (16:36)
[2024-10-08] MEDS: LOVENOX 40 MG SC (17:38)
[2024-10-08] MEDS: REMOVE LIDOCAINE PATCH 2 PATCH REMOVE (20:11)
[2024-10-08] MEDS: TOPROL XL 50 MG PO (21:30)
[2024-10-08] MEDS: PAXIL 10 MG PO (21:30)
[2024-10-08] MEDS: MYLICON 80 MG PO (21:41)
[2024-10-08] MEDS: TYLENOL 1000 MG PO (21:41)
[2024-10-08] MEDS: DILAUDID 0.25 MG IV (21:42)
[2024-10-09] MEDS: DILAUDID 0.5 MG IV ×3 (00:23→10:23)
[2024-10-09 07:55] VITALS: BP 177/94
[2024-10-09] MEDS: APRESOLINE 10 MG IV ×2 (08:15→23:49)
[2024-10-09] MEDS: ROXICODONE 5 MG PO ×2 (08:18→23:50)
[2024-10-09 08:19] LABS: Hematocrit 32.6 % (37.0-47.0); Hemoglobin 10.6 g/dL (12.0-16.0); Mean Corp Hgb Conc. 32.5 g/dL (33.0-37.0); Mean Corpuscular Volume 81.5 fL (81.0-99.0); Platelet Count 237 10^3/uL (130-400); Red Cell Dist. Width 16.4 % (11.5-14.5)
[2024-10-09] MEDS: PROTONIX IV 40 MG IV (08:19)
[2024-10-09] MEDS: NORVASC 5 MG PO (08:19)
[2024-10-09] MEDS: NSS (PRESERVATIVE FREE) 10 ML IV (08:19)
[2024-10-09] MEDS: LIDOCAINE 4% PATCH 2 PATCH TOPICAL (08:25)
[2024-10-09 08:40] LABS: ALT (SGPT) 89 U/L (0-35); AST (SGOT) 49 U/L (14-36); Albumin 3.2 g/dl (3.5-5.0); Alkaline Phosphatase 148 U/L (38-126); Blood Urea Nitrogen 6 mg/dl (7-17); Calcium 8.4 mg/dl (8.4-10.2); Carbon Dioxide 26 mmol/L (22-30); Chloride 104 mmol/L (98-107); Estimated Creatinine Clearance > 125 ml/min; Glucose 96 mg/dl (70-99); Potassium 3.2 mmol/L (3.5-5.1); Sodium 136 mmol/L (135-145); Total Protein 5.7 g/dl (6.3-8.2); eGFR > 60.00
--- NOTE | 2024-10-09 09:32 | W.PN.GS2 ---
Addendum entered and electronically signed by Aditya Sanchez MD 10/09/24 09:40:
pt seen and examined
chief complaint post op is the RUE/shoulder pain which pt states now is c/w prior h/o nerve pain/muscle spasms she has had in the past
post op incisional pain stable.
AFVSS
ABD: soft, ND, TTP only at incision sites, incisions with glue dressings
LFTs improving
A/P: POD#2 s/p lap catarina
low fat diet and stable for d/c from surgical standpoint
Original Note:
Today's Communication / Plan
-
Low fat diet
Dispo planning
Assessment / Plan
-
59-year-old female with presumed gallstone mediated acute pancreatitis with choledocholithiasis on MRCP
PPD #3 ERCP with biliary sphincterotomy, removal of sludge and placement of pancreatic stent into the ventral pancreatic duct
POD #2 Laparoscopic cholecystectomy with chronic cholecystitis noted intraop
AFVSS
Progressing well from surgical standpoint
LFT's continue to trend down, bilirubin normal today
No leukocytosis
Plan:
Low fat diet
No further abx
Analgesics as needed
VTE ppx with lovenox sq
Ok for discharge from surgical standpoint once tolerating diet, final dispo as per primary team
Subjective Data
-
Date of Service: October 09, 2024
Pt seen and examined at bedside with Dr. Sanchez. Denies n/v. Tolerating clears without pain. Some incisional soreness. Primary complaint is right arm/shoulder discomfort.
Objective Data
-
Intake and Output
10/08/24 10/09/24 10/10/24
06:59 06:59 06:59
Intake Total 1300 / 1300
Output Total 450 / 450
Balance 850 / 850
Intake:
IV fluids (Total) 1200 / 1200
normasol 100 / 100
IV piggybacks 100 / 100
Output:
Urine, Glez 100 / 100
Urine, Voided 350 / 350
Other:
Number of approximated MODERATE 1 1
amounts of urine
Vital Signs
Temp Pulse Resp BP Pulse Ox
97.6 F 63 16 177/94 97
10/09/24 07:55 10/09/24 08:15 10/09/24 07:55 10/09/24 08:15 10/09/24 07:55
Lab Results
10/09/24 06:15
10/09/24 06:15
Calcium 8.4 mg/dl (8.4-10.2) 10/09/24 06:15
Magnesium 2.2 mg/dl (1.6-2.3) 10/08/24 09:01
Total Bilirubin 1.2 mg/dl (0.2-1.3) 10/09/24 06:15
Direct Bilirubin 1.2 mg/dl (0.0-0.4) H 10/08/24 09:01
AST 49 U/L (14-36) H 10/09/24 06:15
ALT 89 U/L (0-35) H 10/09/24 06:15
Alkaline Phosphatase 148 U/L (38-126) H 10/09/24 06:15
Total Protein 5.7 g/dl (6.3-8.2) L 10/09/24 06:15
Albumin 3.2 g/dl (3.5-5.0) L 10/09/24 06:15
Physical Exam
-
NAD
ABD soft, mild tenderness at incisions (expected), non-distended
Incisions well approximated, intact glue, no erythema
[2024-10-09] MEDS: TYLENOL 650 MG PO ×2 (11:59→16:26)
[2024-10-09] MEDS: LR IV (12:58)
[2024-10-09] MEDS: METHOCARBAMOL 500 MG PO ×3 (13:39→21:07)
[2024-10-09] MEDS: ZYRTEC 10 MG PO (13:39)
[2024-10-09] MEDS: KCL 40 MEQ PO (13:39)
[2024-10-09] MEDS: MUCINEX 600 MG PO ×2 (13:39→20:49)
[2024-10-09] MEDS: TORADOL 10 MG IV ×2 (13:40→20:50)
[2024-10-09] MEDS: LIDOCAINE 4% PATCH 1 PATCH TOPICAL (13:40)
--- NOTE | 2024-10-09 13:40 | W.PN.HOSP.TC ---
Today's Communication/Plan
-
Encourage out of bed
Trial of muscle relaxants
Possible discharge tomorrow
Assessment / Plan
Assessment / Plan
59-year-old presented to the hospital with abdominal pain
Ultrasound of the abdomen-acute cholecystitis, mild hepatomegaly, fatty infiltration, 1.4 cm left lobe hepatic cyst
MRCP 10/05/2024-low signal intensity in the distal CBD suggesting sludge/choledocholithiasis. Cholelithiasis and gallbladder. Mild acute interstitial edematous pancreatitis
ERCP-unremarkable retrograde cholangiogram with no definitive filling defects appreciated. Subsequent biliary sphincterotomy was performed
has right arm pain- and right scapular pain, Abdominal pain but tolerating diet. Patient stated that when she had right upper quadrant pain she put her arm elbow bent behind her back and twisted it in order to relieve the pain. She thinks she
could have injured during this. Patient had similar pain in the past where her muscle relaxants helped
No pain or redness or tenderness with tough on right arm
CVS: S1-S2 normal
Chest: CTA B/L
Abdomen: Soft, mild RUQ tenderness, Bowel sounds present
Extremities: No edema, normal pulses
# Acute calculus cholecystitis
Possible choledocholithiasis on MRI,ERCP-done on 10/06/2024 without any filling defects
Gallstone pancreatitis
Hepatitis panel negative
Pain control with Dilaudid and ketorolac
lipase better
S/P Lap cholecystectomy on 10/07/2024
Started diet
# Right upper extremity pain
Ultrasound with no DVT
Pain in scapula
Check CT chest show interstitial disease but no other changes
X-ray of the humerus, negative
X-ray of the G-erppt-adzg degenerative changes pronounced in the lower cervical spine
lidocaine patch for pain, add muscle relaxants, change Toradol to standing dose
# Hypertension currently on metoprolol, Norvasc and as needed hydralazine. Pain may be a contributing factor for elevated blood pressure
# Hypokalemia-replace
# Prolonged QTc-better
# Hepatic steatosis per ultrasound
# Migraine-on Imitrex as needed
# Anxiety-on Paxil
# GERD-continue PPI
# Obesity with a BMI of 40
# DVT prophylax-Lovenox
# Full code
D/W RN
Part of this note was created using voice recognition system. Occasional wrong word or��sound alike� substitutions may have inadvertently occurred due to the inherent limitations of voice recognition software. If noted kindly bring it to my
attention for correction.
Anticipated Discharge: Within 24 hours
Subjective/Interval History
-
Date of Service: October 09, 2024
Objective Data
-
Labs:
Laboratory Results
10/09/24
06:15
WBC 7.8
Hgb 10.6 L
Hct 32.6 L
Plt Count 237 D
Sodium 136
Potassium 3.2 L
Chloride 104
Carbon Dioxide 26
BUN 6 L
Creatinine 0.6
Glucose 96
Calcium 8.4
Total Bilirubin 1.2
AST 49 H
ALT 89 H
Alkaline Phosphatase 148 H
Vital Signs:
Vital Signs
Temp Pulse Resp BP Pulse Ox
97.6 F 63 16 177/94 97
10/09/24 07:55 10/09/24 08:15 10/09/24 07:55 10/09/24 08:15 10/09/24 07:55
I&O
10/08/24 10/09/24 10/10/24
06:59 06:59 06:59
Intake Total 1300 / 1300
Output Total 450 / 450
Balance 850 / 850
[2024-10-09 15:55] VITALS: BP 157/82
[2024-10-09] MEDS: LOVENOX 40 MG SC (16:28)
[2024-10-09] MEDS: REMOVE LIDOCAINE PATCH 1 PATCH REMOVE (20:49)
[2024-10-09] MEDS: KCL 20 MEQ PO (21:05)
[2024-10-09] MEDS: PAXIL 10 MG PO (21:07)
[2024-10-09] MEDS: TOPROL XL 50 MG PO (21:07)
[2024-10-09 23:55] VITALS: BP 164/93
[2024-10-10 01:13] VITALS: BP 143/92
[2024-10-10] MEDS: TORADOL 10 MG IV ×3 (01:18→13:48)
[2024-10-10] MEDS: TYLENOL 650 MG PO (04:15)
[2024-10-10] MEDS: ROXICODONE 5 MG PO (04:16)
[2024-10-10 06:00] VITALS: BMI 40.6
[2024-10-10 07:00] VITALS: BP 176/83
[2024-10-10 08:31] LABS: Hematocrit 35.3 % (37.0-47.0); Hemoglobin 11.7 g/dL (12.0-16.0); Mean Corp Hgb Conc. 33.1 g/dL (33.0-37.0); Mean Corpuscular Volume 81.3 fL (81.0-99.0); Platelet Count 283 10^3/uL (130-400); Red Cell Dist. Width 16.0 % (11.5-14.5)
[2024-10-10] MEDS: MUCINEX 600 MG PO (08:35)
[2024-10-10] MEDS: METHOCARBAMOL 500 MG PO (08:35)
[2024-10-10] MEDS: NORVASC 5 MG PO (08:35)
[2024-10-10] MEDS: ZYRTEC 10 MG PO (08:35)
[2024-10-10] MEDS: PROTONIX IV 40 MG IV (08:36)
[2024-10-10] MEDS: NSS (PRESERVATIVE FREE) 10 ML IV (08:36)
[2024-10-10] MEDS: LIDOCAINE 4% PATCH 2 PATCH TOPICAL (08:37)
[2024-10-10 08:56] LABS: Blood Urea Nitrogen 3 mg/dl (7-17); Calcium 8.9 mg/dl (8.4-10.2); Carbon Dioxide 26 mmol/L (22-30); Chloride 104 mmol/L (98-107); Estimated Creatinine Clearance > 125 ml/min; Glucose 113 mg/dl (70-99); Potassium 3.7 mmol/L (3.5-5.1); Sodium 137 mmol/L (135-145); eGFR > 60.00
--- NOTE | 2024-10-10 09:17 | CM ---
Pt postop choly 10/07/24.
On low residue .
Pain med as needed for incisional pain and right humerus pain.
Lives with .
PLAN Home no anticipated needs
[2024-10-10 12:04] VITALS: BP 153/75
--- NOTE | 2024-10-10 14:17 | W.PN.HOSP.TC ---
Today's Communication/Plan
-
Discharge
Assessment / Plan
Assessment / Plan
59-year-old presented to the hospital with abdominal pain
Ultrasound of the abdomen-acute cholecystitis, mild hepatomegaly, fatty infiltration, 1.4 cm left lobe hepatic cyst
MRCP 10/05/2024-low signal intensity in the distal CBD suggesting sludge/choledocholithiasis. Cholelithiasis and gallbladder. Mild acute interstitial edematous pancreatitis
ERCP-unremarkable retrograde cholangiogram with no definitive filling defects appreciated. Subsequent biliary sphincterotomy was performed
Patient states that she feels a lot better and sitting in a chair
No pain or redness or tenderness with tough on right arm
CVS: S1-S2 normal
Chest: CTA B/L
Abdomen: Soft, mild RUQ tenderness, Bowel sounds present
Extremities: No edema, normal pulses
# Acute calculus cholecystitis
Possible choledocholithiasis on MRI,ERCP-done on 10/06/2024 without any filling defects
Gallstone pancreatitis
Hepatitis panel negative
Pain control with Dilaudid and ketorolac
lipase better
S/P Lap cholecystectomy on 10/07/2024
Started diet, tolerating
# Right upper extremity pain/pain in the right scapula
Ultrasound with no DVT
Similar pain a couple decades ago was treated with muscle relaxants
Check CT chest show interstitial disease but no other changes
X-ray of the humerus, negative
X-ray of the U-dxrpd-isap degenerative changes pronounced in the lower cervical spine
lidocaine patch for pain, continue muscle relaxants, change Toradol to ibuprofen for discharge. Discussed about
# Hypertension currently on metoprolol, Norvasc and as needed hydralazine. Pain may be a contributing factor for elevated blood pressure
# Hypokalemia-replaced
# Changes on the lung on the CAT scan-discussed with the patient she is aware that she needs to follow-up with pulmonary and repeat CT
# Prolonged QTc-better
# Hepatic steatosis per ultrasound
# Migraine-on Imitrex as needed
# Anxiety-on Paxil
# GERD-continue PPI
# Obesity with a BMI of 40
# DVT prophylax-Lovenox
# Full code
D/W RN
More than 30 minutes spent in discharge including
Final examination of the patient
Summarizing hospital stay
Instructions for continuing care to all relevant caregivers
Preparation of discharge records, prescriptions, and referral forms
Total time spent (in minutes): 33 min
follow up care discussed with the patient. Advised that she needs follow-up Dr. Sanchez and if cleared she can start physical therapy for the pain. She will follow-up with her PCP
Part of this note was created using voice recognition system. Occasional wrong word or��sound alike� substitutions may have inadvertently occurred due to the inherent limitations of voice recognition software. If noted kindly bring it to my
attention for correction.
Anticipated Discharge: Today
Subjective/Interval History
-
Date of Service: October 10, 2024
Objective Data
-
Labs:
Laboratory Results
10/10/24
07:12
WBC 9.1
Hgb 11.7 L
Hct 35.3 L
Plt Count 283
Sodium 137
Potassium 3.7
Chloride 104
Carbon Dioxide 26
BUN 3 L
Creatinine 0.5 L
Glucose 113 H
Calcium 8.9
Vital Signs:
Vital Signs
Temp Pulse Resp BP Pulse Ox
97.8 F 70 22 153/75 96
10/10/24 07:00 10/10/24 08:35 10/10/24 07:00 10/10/24 12:04 10/10/24 08:51
I&O
10/09/24 10/10/24 10/11/24
06:59 06:59 06:59
Intake Total 1080 / 1080
Balance 1080 / 1080
--- NOTE | 2024-10-10 14:33 | W.DS.TRANS ---
Addendum entered and electronically signed by Jeff Avalos MD 10/10/24 16:26:
Dictation-[id number]
Original Note:
DC Summary - [employer]
-
Discharge Instructions:
Discharge Diagnosis/Procedures Status post CP on 10/06/2024 and laparoscopic
cholecystectomy on 10/07/2024
Right scapular and right arm pain
Hypokalemia
Hypertension
Fatty liver
Anxiety
GERD
Diet As tolerated
Additional Diets Eat small meals as bloating is common after
surgery. If you have loose stools after surgery,
eat a low fat diet.
Activity No strenuous activity
Additional Activity Do not lift over 20lbs for the next 2-4 weeks
Driving Restrictions No driving for 24 hours
Bathing Restrictions OK to Shower
Blood Work cbc, cmp 1-2 weeks ( see pcp)
Others Tests XRay of Abdomen in 2 weeks
Wound Care Allow the glue to flake off your incisions on
its own over the next 2-3 weeks
Instructions:
Stand-Alone Forms:
Changes to Home Medications: Yes
Discharge Medications:
DC Medications w/original date entered in [employer]
paroxetine HCl 10 mg tablet 10 mg PO HS Mental Health/Anxiety 11/30/07
metoprolol succinate 50 mg tablet,extended release 24 hr 50 mg PO HS Blood Pressure 05/07/15
acetaminophen 325 mg tablet (Tylenol) 650 mg PO Q6HPRN PRN mild pain 10/04/24
famotidine 20 mg tablet (Pepcid) 20 mg PO QPM Gastrointestinal Issue 10/04/24
guaifenesin 400 mg tablet 400 mg PO DAILY Cough 10/04/24
sumatriptan succinate 100 mg tablet (Imitrex) 0 mg PO .COMPLEX Pain 10/04/24
amlodipine 5 mg tablet 5 mg PO DAILY Blood pressure #30 tabs 10/10/24
ibuprofen 600 mg tablet 600 mg PO TID PRN pain, moderate try first #30 tabs 10/10/24
lidocaine 4 % topical patch 2 patch topical DAILY Pain #0 ea 10/10/24
methocarbamol 500 mg tablet 500 mg PO TIDPRN PRN muscle pain #30 tabs 10/10/24
omeprazole 20 mg tablet,delayed release 40 mg (2 x 20 mg) PO DAILY Gastrointestinal Issue #30 tabs 10/10/24
oxycodone 5 mg tablet 5 mg PO Q4HPRN PRN moderate pain #20 tabs 10/10/24
sennosides 8.6 mg capsule (senna) 8.6 mg PO HS PRN when you take oxycodone #30 caps 10/10/24
Home Medication Changes
new
Amlodipine 5 mg tablet 5 mg PO DAILY Blood pressure #30 tabs 10/10/24
ibuprofen 600 mg tablet 600 mg PO TID PRN pain, moderate try first #30 tabs 10/10/24
lidocaine 4 % topical patch 2 patch topical DAILY Pain #0 ea 10/10/24
methocarbamol 500 mg tablet 500 mg PO TIDPRN PRN muscle pain #30 tabs 10/10/24
oxycodone 5 mg tablet 5 mg PO Q4HPRN PRN moderate pain #20 tabs 10/10/24
sennosides 8.6 mg capsule (senna) 8.6 mg PO HS PRN when you take oxycodone #30 caps 10/10/24
Pending Results: Yes (path)
--- NOTE | 2024-10-10 14:46 | CM ---
Pt postop choly 10/07/24.
On low residue .
Pain med as needed for incisional pain and right humerus pain.
Shalonda will drive her home.
Offered VN she declined.
PLAN Home no anticipated needs
[2024-10-10 15:00] VITALS: BP 141/74
[2024-10-10 15:18] VITALS: BP 141/74
== END 2024-10-10 15:59 | disposition home or self-care (01) | DRG 417 ==
LOC: 4 EAST ACU 01:19
PROVIDERS: Emergency Medicine; Internal Medicine; Internal Medicine Gastroenterology; Surgery; ADMITTING PHYSICIAN Hospitalist; ATTENDING PHYSICIAN Hospitalist; CONSULT PHYSICIAN Surgery; EMERGENCY PHYSICIAN Emergency Medicine; FAMILY PHYSICIAN Family Medicine; OTHER PHYSICIAN Internal Medicine Gastroenterology
PROC: 0D798ZZ Dilation of Duodenum, Via Natural or Artificial Opening Endoscopic (ICD-10-PCS; 2024-10-06)
PROC: 0DB98ZX Excision of Duodenum, Via Natural or Artificial Opening Endoscopic, Diagnostic (ICD-10-PCS; 2024-10-06)
PROC: 0F7D8DZ Dilation of Pancreatic Duct with Intraluminal Device, Via Natural or Artificial Opening Endoscopic (ICD-10-PCS; 2024-10-06)
PROC: 0FC98ZZ Extirpation of Matter from Common Bile Duct, Via Natural or Artificial Opening Endoscopic (ICD-10-PCS; 2024-10-06)
PROC: 0FT44ZZ Resection of Gallbladder, Percutaneous Endoscopic Approach (ICD-10-PCS; 2024-10-07)
DX: K80.66 Calculus of gallbladder and bile duct with acute and chronic cholecystitis without obstruction (principal); K85.10 Biliary acute pancreatitis without necrosis or infection; K31.5 Obstruction of duodenum; Z68.41 Body mass index [BMI] 40.0-44.9, adult; E87.1 Hypo-osmolality and hyponatremia; K76.0 Fatty (change of) liver, not elsewhere classified; K21.9 Gastro-esophageal reflux disease without esophagitis; I10 Essential (primary) hypertension; G43.909 Migraine, unspecified, not intractable, without status migrainosus; E66.09 Other obesity due to excess calories; E87.6 Hypokalemia; F42.9 Obsessive-compulsive disorder, unspecified; F41.9 Anxiety disorder, unspecified; K76.89 Other specified diseases of liver; M79.621 Pain in right upper arm; Z79.82 Long term (current) use of aspirin; Z79.899 Other long term (current) drug therapy; Z87.891 Personal history of nicotine dependence
CPT/HCPCS: 71260; 72050; 73060; 74181; 74330; 76000; 76700; 80048; 80053; 82248; 83690; 83735; 85025; 85027; 86704; 86706; 86708; 86709; 86803; 87340; 88304; 88305; 93005; 93971; 96361; 96365; 96375; 99284; C1726; C1769; C2617; Q9967

== ENCOUNTER → 2024-10-26 14:27 | Outpatient (REF) | payer OTHER, SELFPAY | LOC: RAD 14:27 | PROVIDERS: ATTENDING PHYSICIAN Internal Medicine Gastroenterology | DX: Z98.890 Other specified postprocedural states (principal) | CPT/HCPCS: 74019 ==